=== PATIENT | female | born 1965 | race Caucasian/White ===

== ENCOUNTER → 2018-04-20 | Outpatient (CLI) | payer BC ==
[~2018-04-20] MED LIST: ALP5 PO; BUTA1CAP36 PO; IBUP-1687 PO; MEPE50TA29 PO; PANT40TA65 PO; PER PO; PRO25 PO; PROC-35 PO; PROC10TA95 PO; TOP25 PO; TRA50 PO; TRAZ-133 PO; [UNRECOGNIZED DRUG - OTHER]; [UNRECOGNIZED DRUG - OTHER]; [UNRECOGNIZED DRUG - OTHER] PO
--- NOTE | 2018-04-20 12:04 | RADIOLOGY IMAGING REPORT ---
FACILITY: [facility] [place] PATIENT NAME: Katelin Serrano : 1965 MR: [id number] V: [id number] EXAM DATE: ORDERING PHYSICIAN: OSMANY GERMAIN TECHNOLOGIST: Location: [facility] [place] Patient: Katelin Serrano : 1965 Visit/Account:[id number] Date of Sevice: 04/20/2018 MRI right knee without contrast Indication: Knee pain. Horse riding injury. Comparison: None available. Technique: Multiplanar, multisequence MRI examination is performed of the right knee without contrast . Findings: Examination of the medial compartment demonstrates a full-thickness radial tear of the posterior horn of the medial meniscus near the posterior root. There is mild medial extrusion of the meniscal body. Shallow chondrosis involves the weightbearing surfaces of the condyle and tibial plateau. There is m arrow edema seen within the medial tibial plateau. Subtle area of low T1 signal seen within the subch ondral bone of the tibial plateau along the peripheral margin of the central weightbearing surface. A ppearance favors an impaction type fracture of the medial tibial plateau. Examination of the lateral compartment demonstrates a normal lateral meniscus. The articular cartilag e surfaces are normal. Examination of the patellofemoral compartment demonstrates focal chondrosis at the median ridge of th e patella. There is central trochlear chondrosis/fissuring. ACL and PCL are intact. The MCL is intact. The lateral collateral ligament complex is maintained. The extensor mechanism is intact. Intermediate to large joint effusion is seen. Lobulated low signal intensity filling defects are seen within the suprapatella bursa most consistent with blood products in the setting of a hemarthrosis. There is a large popliteal cyst measuring at least 8.3 cm in length. IMPRESSION: 1. Full-thickness radial tear involving the posterior horn of the right knee medial meniscus near the posterior root with medial meniscal extrusion. 2. Bone contusion with a suspected subchondral fracture line involving the peripheral weightbearing s urface of the medial tibial plateau. 3. Intermediate to large joint effusion with suspected blood products within the suprapatella bursa. This extends into a large popliteal cyst. Report Dictated By: Juan Esparza at 04/20/2018 11:51 AM Report E-Signed By: Juan Esparza at 04/20/2018 12:00 PM WSN:[id number]
== END ==
LOC: MRI 00:18
PROVIDERS: ATTEND Orthopaedic Surgery
DX: S83.241A Other tear of medial meniscus, current injury, right knee, initial encounter (principal); S80.01XA Contusion of right knee, initial encounter; M25.461 Effusion, right knee; M71.21 Synovial cyst of popliteal space [Baker], right knee